=== PATIENT | male | born 1970 | race Caucasian/White ===

== ENCOUNTER 2024-07-19 14:03 | Emergency (ER) | payer OTHER ==
[2024-07-19 14:37] VITALS: TEMP 97.8
[2024-07-19] MEDS ORDERED: TRANEXAMIC ACID 1000 MG/10 ML ONE (14:40)
[2024-07-19] MEDS: TRANEXAMIC ACID 1000 MG/10 ML TP ONE (14:47)
[2024-07-19 15:58] LABS: Absolute Neutrophil Ct (ANC) 9.69 x10^3/uL (1.78-5.38); BASOPHIL % 0.5 % (0.2-1.2); Basophil (Absolute #) 0.08 x10^3/uL (0.01-0.08); Eosinophil % 1.7 % (0.8-7.0); Eosinophil (Absolute #) 0.25 x10^3/uL (0.04-0.54); Hematocrit 50.2 % (40.1-51.0); Hemoglobin 16.7 g/dL (13.7-17.5); IMMATURE GRAN % 0.7 % (0.001-0.429); Lymphocyte (Absolute #) 3.84 x10^3/uL (1.32-3.57); Lymphocytes % 25.7 % (21.8-53.1); Mean Cell Volume 87.3 fL (79.0-92.2); Mean Corpuscular Hgb Concent. 33.3 g/dL (32.3-36.5); Monocyte (Absolute #) 0.96 x10^3/uL (0.30-0.82); Monocytes % 6.4 % (5.3-12.2); Platelet Count 285 x10^3/uL (163-337); Red Blood Count 5.75 x10^6/uL (4.63-6.08); Red Cell Distribution Width 13.2 % (11.6-14.4); White Blood Count 14.9 x10^3/uL (4.23-9.07)
[2024-07-19] MEDS ORDERED: Sodium Chloride 0.9% 1000 ML 1,000 ML ONE (16:05)
[2024-07-19] MEDS: Sodium Chloride 0.9% 1000 ML 1,000 ML IV SCH (16:09)
[2024-07-19 16:18] LABS: ALBUMIN 4.6 g/dL (3.5-5.0); ANION GAP 20.4 MEQ/L (5-15); BILIRUBIN,TOTAL 1.5 mg/dL (0.2-1.3); Calcium 9.5 mg/dL (8.4-10.2); Creatinine 1 1.32 mg/dL (0.66-1.25); EST GLOMERULAR FILTRATION RATE 63.7 ML/MIN; Potassium 4.6 mmol/L (3.5-5.1); Total Protein 7.1 g/dL (6.3-8.2)
--- NOTE | 2024-07-19 16:55 | ERPHSYRPT ---
- History of Present Illness Time Seen by Provider: 07/19/24 14:40 Source: patient Exam Limitations: no limitations Patient Subjective Stated Complaint: Mouth pain- bleeding from extraction Triage Nursing Assessment: Patient ambulated back to ED and transferred self to bed. Patient A+O X 3. Patient's skin pink, warm and dry. Patient states he had 4 bottom teeth pulled at 10am by [facility]. Patient states he takes ASA and was not told to hold it. Patient states he unable to get the bleeding to stop. Patient denies pain or discomfort. Physician History: Patient is a 54-year-old male presents to our ED for evaluation of oral bleeding Patient ambulated back to ED and transferred self to bed. Patient A+O X 3. P atient's skin pink, warm and dry. Patient states he had 4 bottom teeth pulled at 10am by [facility]. Patient states he takes ASA and was not told to hold it. Patient states he unable to get the bleeding to stop. Patient denies pain or discomfort. Timing/Duration: today Severity: moderate Modifying Factors: Improves With: nothing Associated Symptoms: denies symptoms Allergies/Adverse Reactions: No Known Drug Allergies Allergy (Unverified 07/19/24 14:18) Hx Influenza Vaccination/Date Given: No Hx Pneumococcal Vaccination/Date Given: No Immunizations Up to Date: Yes Travel Risk - International Travel Have you traveled outside of the country in past 3 weeks: No - Emerging Infectious Disease Are you exhibiting symptoms associated with any current EIDs: No - Review of Systems Constitutional: No Symptoms, No Fever, No Chills Eyes: No Symptoms Ears, Nose, & Throat: No Symptoms Respiratory: No Symptoms, No Cough, No Dyspnea Cardiac: No Symptoms, No Chest Pain, No Edema, No Syncope Abdominal/Gastrointestinal: No Symptoms, No Abdominal Pain, No Nausea, No Vomiting, No Diarrhea Genitourinary Symptoms: No Symptoms, No Dysuria Musculoskeletal: No Symptoms, No Back Pain, No Neck Pain Skin: No Symptoms, No Rash Neurological: No Symptoms, No Dizziness, No Focal Weakness, No Sensory Changes Psychological: No Symptoms Endocrine: No Symptoms Hematologic/Lymphatic: No Symptoms Immunological/Allergic: No Symptoms All Other Systems: Reviewed and Negative - Past Medical History Pertinent Past Medical History: Yes Neurological History: No Pertinent History ENT History: No Pertinent History Cardiac History: High Cholesterol Respiratory History: No Pertinent History Endocrine Medical History: Other Musculoskeletal History: No Pertinent History GI Medical History: No Pertinent History History: No Pertinent History Psycho-Social History: Anxiety, Depression Male Reproductive Disorders: No Pertinent History Other Medical History: borderline DM - Past Surgical History Past Surgical History: Yes Neuro Surgical History: No Pertinent History Cardiac: Cardiac Catheterization, Cardiac Stent Respiratory: No Pertinent History Gastrointestinal: No Pertinent History Genitourinary: No Pertinent History Musculoskeletal: No Pertinent History Male Surgical History: No Pertinent History - Social History Smoking Status: Never smoker Exposure to second hand smoke: No Drug Use: none - Social Determinants of Health Will the patient participate in the screening: Yes Do you worry about a steady place to live?: No Do you have any problems with any of the following?: No known problems In the past 12 months,have you had to go without utilities?: No Transportation Issues: No Has anyone in your support network made you feel unsafe?: No Have you or anyone in your house had to go w/o enough food: No - Nursing Vital Signs Nursing Vital Signs: Initial Vital Signs Temperature 97.8 F 07/19/24 14:20 Pulse Rate 106 H 07/19/24 14:20 Respiratory Rate 20 07/19/24 14:20 Blood Pressure 130/99 07/19/24 14:20 O2 Sat by Pulse Oximetry 97 07/19/24 14:20 Pain Scale Pain Intensity 0 - Physical Exam General Appearance: no apparent distress, alert Eye Exam: PERRL/EOMI, eyes nml inspection Ears, Nose, Throat Exam: normal ENT inspection, TMs normal, pharynx normal, moist mucous membranes Neck Exam: normal inspection, non-tender, supple, full range of motion Respiratory Exam: normal breath sounds, lungs clear, No respiratory distress Cardiovascular Exam: regular rate/rhythm, normal heart sounds, normal peripheral pulses Gastrointestinal/Abdomen Exam: soft, normal bowel sounds, No tenderness, No mass Back Exam: normal inspection, normal range of motion, No CVA tenderness, No vertebral tenderness Extremity Exam: normal inspection, normal range of motion, pelvis stable Neurologic Exam: alert, oriented x 3, cooperative, normal mood/affect, nml cerebellar function, nml station & gait, sensation nml, No motor deficits Skin Exam: normal color, warm, dry, No rash Lymphatic Exam: No adenopathy SpO2 Interpretation: normal SpO2: 99 O2 Delivery: Room Air - Course Nursing assessment & vital signs reviewed: Yes EKG Interpreted by Me: RATE ([id number]), Sinus Tach, NORMAL AXIS, NORMAL INTERVALS, NORMAL QRS Ordered Tests: Active Orders 24 hr Category Date Time Status Platform Inspector STAT Care 07/19/24 15:49 Active EKG-ER Only STAT Care 07/19/24 15:49 Active IV Insertion STAT Care 07/19/24 15:49 Active Pulse Oximetry (ED) STAT Care 07/19/24 15:49 Active CBC W DIFF Stat Lab 07/19/24 15:45 Completed CMP Stat Lab 07/19/24 15:45 Completed TROPONIN Q4H Lab 07/19/24 15:45 Completed TROPONIN Q4H Lab 07/19/24 20:00 Ordered TROPONIN Q4H Lab 07/20/24 00:00 Ordered Medication Summary Generic Name Dose Route Start Last Admin Trade Name Freq PRN Reason Stop Dose Admin Sodium Chloride 1,000 mls @ 100 mls/hr 07/19/24 16:15 07/19/24 16:09 Sodium Chloride 0.9% 1000 Ml IV 08/18/24 16:14 100 mls/hr .Q10H SINGH Administration Discontinued Medications Generic Name Dose Route Start Last Admin Trade Name Freq PRN Reason Stop Dose Admin Tranexamic Acid Confirm 07/19/24 14:40 Tranexamic Acid 1000 Mg/10 Ml Vial/Amp Administered 07/19/24 14:41 Dose 1,000 mg .ROUTE .STK-MED ONE Tranexamic Acid 1,000 mg 07/19/24 15:00 07/19/24 14:47 Tranexamic Acid 1000 Mg/10 Ml Vial/Amp TP 07/19/24 15:01 1,000 mg ONCE ONE Administration Lab/Rad Data: Laboratory Result Diagrams 07/19/24 15:45 07/19/24 15:45 Laboratory Results 07/19/24 07/19/24 07/19/24 Range/Units 15:45 15:45 15:45 WBC 14.9 H (4.23-9.07) x10^3/uL RBC 5.75 (4.63-6.08) x10^6/uL Hgb 16.7 (13.7-17.5) g/dL Hct 50.2 (40.1-51.0) % MCV 87.3 (79.0-92.2) fL MCH 29.0 (25.7-32.2) pg MCHC 33.3 (32.3-36.5) g/dL RDW 13.2 (11.6-14.4) % Plt Count 285 (163-337) x10^3/uL MPV 9.0 L (9.4-12.4) fL Gran % 65.0 (34.0-67.9) % Immature Gran % (Auto) 0.7 H (0.001-0.429) % Nucleat RBC Rel Count 0.0 (0.00-0.2) % Eos # (Auto) 0.25 (0.04-0.54) x10^3/uL Immature Gran # (Auto) 0.10 H (0.001-0.031) x10^3u/L Absolute Lymphs (auto) 3.84 H (1.32-3.57) x10^3/uL Absolute Monos (auto) 0.96 H (0.30-0.82) x10^3/uL Absolute Nucleated RBC 0.00 (0.00-0.012) x10^3u/L Lymphocytes % 25.7 (21.8-53.1) % Monocytes % 6.4 (5.3-12.2) % Eosinophils % 1.7 (0.8-7.0) % Basophils % 0.5 (0.2-1.2) % Absolute Granulocytes 9.69 H (1.78-5.38) x10^3/uL Basophils # 0.08 (0.01-0.08) x10^3/uL Sodium 142 (135-145) mmol/L Potassium 4.6 (3.5-5.1) mmol/L Chloride 106 (98-107) mmol/L Carbon Dioxide 20 L (22-30) mmol/L Anion Gap 20.4 H (5-15) MEQ/L BUN 15 (9-20) mg/dL Creatinine 1.32 H (0.66-1.25) mg/dL Estimated GFR 63.7 ML/MIN Glucose 149 H (74-106) mg/dL Calcium 9.5 (8.4-10.2) mg/dL Total Bilirubin 1.50 H (0.2-1.3) mg/dL AST 37 (17-59) U/L ALT 71 H (0-50) U/L Alkaline Phosphatase 92 (38-126) U/L Troponin I < 0.012 (0.000-0.033) ng/mL Serum Total Protein 7.1 (6.3-8.2) g/dL Albumin 4.6 (3.5-5.0) g/dL - Progress Progress: improved Progress Note: 54-year-old male presents to our ED for evaluation of bleeding post tooth extraction. We attempted direct pressure however this did not resolve the bleeding. We treated with TXA soaked gauze. This improved the bleeding significantly however there was some bleeding. We added a Surgicel and bleeding resolved. However while patient was sitting in bed holding the Surgicel gauze in place he began to feel dizzy. Patient had a syncopal episode. Patient reassessed. He came around after few minutes. Patient was neurologically normal. Patient received IV fluids labs obtained. Creatinine is 1.3. However we do not have a baseline available to us. Hemoglobin 16. Patient reassessed. He is asymptomatic. Patient ambulated throughout our ED. Patient had no complaints. Troponin negative. Lab workup reveals a leukocytosis. However this is likely secondary to dental extraction. Patient has a antibiotic prescription given to him by his dentist. Patient will fill his antibiotic today. Patient states he is ready for discharge. Patient discharged home. He agrees to follow-up with his primary care doctor within 48 hours for reevaluation. Daughter at bedside. She understands the instructions as well. She voices no other complaints or concerns. Portions of this note were created with voice recognition technology. There may be grammatical, spelling, punctuation or sound alike errors Complexity of problem addressed is moderate acute complicated. No critical care time. Complex of data reviewed analyzes moderate. Test ordered chest reviewed results analyzed and correlated clinically with history and physical exam. Risk of complication and or risk of morbidity/mortality of patient management is low. Vital stable. Time spent to discharge patient is approximately 15 minutes. Plan of care established for shared decision making. No social determinants of health present to impede follow-up. Portions of this note were created with voice recognition technology. There may be grammatical, spelling, punctuation or sound alike errors 07/19/24 17:16 Counseled pt/family regarding: lab results, diagnosis, need for follow-up, rad results - Departure Departure Disposition: Home Clinical Impression: Vasovagal episode, Bleeding post tooth extraction Condition: Stable Critical Care Time: No Referrals: SKY SCHREIBER MD [Primary Care Provider] - Follow up/PCP as directed Instructions: Bleeding Gums (DC) Additional Instructions: Discharge/Care Plan CONOR MARTEL was seen on 07/19/24 in the Emergency Room. The patient was counseled regarding Diagnosis,Lab results, Imaging studies, need for follow up and when to return to the Emergency Room. Prescriptions given: Discharge Note I have spoken with the patient and/or caregivers. I have explained the patient's condition, diagnosis and treatment plan based on the information available to me at this time. I have answered the patient's and/or caregiver's questions and addressed any concerns. The patient and/or caregivers have as good understanding of the patient's diagnosis, condition and treatment plan as can be expected at this point. The vital signs have been stable. The patient's condition is stable and appropriate for discharge from the emergency department. The patient will pursue further outpatient evaluation with the primary care physician or other designated or consulting physician as outlined in the discharge instructions. The patient and/or caregivers are agreeable to this plan of care and follow-up instructions have been explained in detail. The patient and/or caregivers have received these instruction. The patient/and or caregivers are aware that any significant change in condition or worsening of symptoms should prompt an immediate return to this or the closest emergency department or call 911.
[2024-07-19 17:12] VITALS: O2SAT 99
[2024-07-19 17:16] VITALS: BP 121/75; PULSE 72; RESP 18
== END 2024-07-19 17:16 | disposition home or self-care (01) ==
LOC: ED 14:03
DX: K91.840 Postprocedural hemorrhage of a digestive system organ or structure following a digestive system procedure (principal); R55 Syncope and collapse; K06.8 Other specified disorders of gingiva and edentulous alveolar ridge; E78.5 Hyperlipidemia, unspecified
CPT/HCPCS: 36415; 80053; 84484; 85025; 93005; 93041; 94760; 99284